=== PATIENT | female | born 1975 | race African-American/Black ===

== ENCOUNTER 2017-03-12 18:17 | Emergency (ER) | payer OTHER ==
[2017-03-12] MEDS ORDERED: methylPREDNISolone Sod Succ/PF 125 MG/2 ML VIAL ONE (18:51)
[2017-03-12] MEDS ORDERED: AMOXicillin 250 MG CAP ONE (18:51)
--- NOTE | 2017-03-12 20:34 | RAD ---
EXAM: CHEST TWO VIEWS 03/12/17 HISTORY: Dyspnea. Shortness of breath and cough. COMPARISON: 01/21/12. FINDINGS: Normal cardiac silhouette. The lungs and pleural spaces are clear. No pneumothorax or osseous abnorm alities. IMPRESSION: No acute cardiopulmonary process. POS: H
== END 2017-03-12 19:16 | disposition home or self-care (01) ==
LOC: BURERS 18:17
DX: J20.9 Acute bronchitis, unspecified (principal); N83.209 Unspecified ovarian cyst, unspecified side; Z79.899 Other long term (current) drug therapy
CPT/HCPCS: 71020; 94640; 96372; J2930; J7620

== ENCOUNTER 2017-07-06 20:00 | Emergency (ER) | payer OTHER | END 2017-07-06 20:35 | disposition home or self-care (01) | LOC: BURERS 20:00 | DX: J06.9 Acute upper respiratory infection, unspecified (principal); E28.2 Polycystic ovarian syndrome; Z87.01 Personal history of pneumonia (recurrent) | CPT/HCPCS: 99283 ==

== ENCOUNTER 2018-01-18 18:29 | Emergency (ER) | payer OTHER ==
[2018-01-18] MEDS ORDERED: Ketorolac Tromethamine 60 MG/2 ML VIAL ONE (18:50)
--- NOTE | 2018-01-18 20:30 | RAD ---
LEFT KNEE FOUR VIEWS: 01/18/18 No fracture, dislocation, or joint effusion was seen. Osteoarthritis was present consistent of medial joint space narrowing and osteophytes. The patellofemoral joint is involved as well. IMPRESSION: Osteoarthritis. POS: HOME
--- NOTE | 2018-01-18 20:31 | RAD ---
LEFT FOOT THREE VIEWS: 01/18/18 Hallux valgus is present with hammertoe deformities. No acute fracture or periosteal reaction was see n. old trauma at the base of the fifth metatarsal is noted. IMPRESSION: Chronic changes but no acute finding. POS: HOME
--- NOTE | 2018-01-18 20:48 | RAD ---
LEFT ANKLE THREE VIEWS: 01/18/18 An old healed fracture of the distal fibular shaft is noted. There are bony densities around the medi al malleolus indicating old injury. The ankle joint is narrowed. I see no findings of acute fracture, however. There probably was old trauma at the base of the fifth metatarsal as well. There is extensi ve soft tissue swelling in the lower leg. IMPRESSION: Extensive old traumatic changes but no acute bony findings. POS: HOME
== END 2018-01-18 20:00 | disposition home or self-care (01) ==
LOC: BURERS 18:29
DX: S93.402A Sprain of unspecified ligament of left ankle, initial encounter (principal); S83.92XA Sprain of unspecified site of left knee, initial encounter; I10 Essential (primary) hypertension; F32.9 Major depressive disorder, single episode, unspecified; W18.30XA Fall on same level, unspecified, initial encounter
CPT/HCPCS: 96372; J1885

== ENCOUNTER 2018-01-22 13:38 | Emergency (ER) | payer OTHER ==
[2018-01-22] MEDS ORDERED: methylPREDNISolone Sod Succ/PF 125 MG/2 ML VIAL ONE (14:56)
[2018-01-22] MEDS ORDERED: Ibuprofen 800 MG TAB ONE (14:56)
[2018-01-22] MEDS ORDERED: cefTRIAXone\\ROCEPHIN 1 GM VIAL ONE (15:05)
[2018-01-22] MEDS ORDERED: Sterile Water 0 ML ONE (15:06)
[2018-01-22 15:08] LABS: ALT (SGPT) 18 U/L (8-55); AST (SGOT) 35 U/L (5-34); Albumin 3.7 g/dL (3.5-5.0); Alkaline Phosphatase 61 U/L (40-150); Anion Gap 13 mmol/L (10-20); BUN (Urea Nitrogen) 7 mg/dL (7.0-18.7); Bilirubin, Total 0.5 mg/dL (0.2-1.2); Calc. Creatinine Clearance 0 mL/min (70-130); Calcium 8.9 mg/dL (7.8-10.44); Carbon Dioxide 25 mmol/L (22-29); Chloride 104 mmol/L (98-107); Estimated GFR-MDRD Greater than 90; Globulin 3.8 g/dL (2.4-3.5); Glucose 111 mg/dL (70-105); Potassium 3.5 mmol/L (3.5-5.1); Protein, Total 7.5 g/dL (6.0-8.3); Sodium 138 mmol/L (136-145)
[2018-01-22 15:09] LABS: Troponin I Less than 0.010 ng/mL (< 0.028)
[2018-01-22] MEDS ORDERED: Azithromycin 500 MG VIAL ONE (15:20)
[2018-01-22 15:21] LABS: #Basophils 0.2 thou/uL (0.0-0.2); #Eosinphils 0.2 thou/uL (0.0-0.7); #Lymphocytes 1.9 thou/uL (1.20-3.40); #Monocytes 1.1 thou/uL (0.11-0.59); #Neutrophils 5.2 thou/uL (1.40-6.50); %Basophils 1.8 % (0.0-1.0); %Eosinophils 2.3 % (0.0-10.0); %Lymphocytes 22.7 % (21.0-51.0); %Monocytes 12.6 % (0.0-10.0); %Neutrophils 60.6 % (42.0-75.0); Band 6 % (5-11); Eosinophils 2 % (0-10); Hemoglobin 11.5 g/dL (12.0-16.0); Hypochromia MODERATE=16-30 cells (100X) (0-5/hpf); Lymphocytes 26 % (21-51); MDiff Complete? YES; Mean Corpuscular HGB CONC 33.7 g/dL (32.0-36.0); Mean Corpuscular Hemoglobin 24.5 pg (27.0-31.0); Mean Corpuscular Volume 72.7 fl (81.0-99.0); Microcytosis SLIGHT = 6-15 cells (100X) (0-5/hpf); Monocytes 10 % (0-10); Neutrophil 56 % (42-75); Platelet Count 315 thou/uL (130-400); RBC Distribution Width 15.5 % (11.5-14.5); Red Blood Cell (RBC) Count 4.67 mill/uL (4.20-5.40); White Blood Cell (WBC) Count 8.5 thou/uL (4.8-10.8)
--- NOTE | 2018-01-22 15:44 | RAD ---
2 VIEWS CHEST: Date: 01/22/18 PROVIDED CLINICAL HISTORY: Dyspnea. FINDINGS: Comparison with 03/12/17. Cardiac and mediastinal silhouette is within normal limits. Evaluation is limited by patient body hab itus. No definite focal consolidation, pleural fluid, or pneumothorax. The lateral view is essentiall y nondiagnostic. IMPRESSION: No evidence for an acute cardiopulmonary process with limitations as above. POS: [facility]
== END 2018-01-22 15:54 | disposition short-term general hospital (02) ==
LOC: BURERS 13:38
DX: J18.2 Hypostatic pneumonia, unspecified organism (principal); J98.01 Acute bronchospasm; I10 Essential (primary) hypertension; F32.9 Major depressive disorder, single episode, unspecified; Z79.899 Other long term (current) drug therapy; Z79.01 Long term (current) use of anticoagulants
CPT/HCPCS: 71046; 80053; 82553; 83605; 84484; 85025; 87040; 87804; 93005; 94640; 94760; 96365; 96375; J0456; J0696; J2930; J7620

== ENCOUNTER 2018-07-12 23:49 | Emergency (ER) | payer BC, OTHER ==
[2018-07-13] MEDS ORDERED: methylPREDNISolone Sod Succ/PF 125 MG/2 ML VIAL ONE (00:08)
[2018-07-13 00:32] LABS: ALT (SGPT) 12 U/L (8-55); AST (SGOT) 17 U/L (5-34); Albumin 3.9 g/dL (3.5-5.0); Alkaline Phosphatase 71 U/L (40-150); Anion Gap 14 mmol/L (10-20); BUN (Urea Nitrogen) 13 mg/dL (7.0-18.7); Bilirubin, Total 0.3 mg/dL (0.2-1.2); Calc. Creatinine Clearance 0 mL/min (70-130); Calcium 9.2 mg/dL (7.8-10.44); Carbon Dioxide 24 mmol/L (22-29); Chloride 105 mmol/L (98-107); Estimated GFR-MDRD 88; Globulin 3.9 g/dL (2.4-3.5); Glucose 146 mg/dL (70-105); Potassium 3.9 mmol/L (3.5-5.1); Protein, Total 7.8 g/dL (6.0-8.3); Sodium 139 mmol/L (136-145)
[2018-07-13 00:36] LABS: #Basophils 0.2 thou/uL (0.0-0.2); #Eosinphils 0.3 thou/uL (0.0-0.7); #Lymphocytes 4.6 thou/uL (1.20-3.40); #Monocytes 0.9 thou/uL (0.11-0.59); #Neutrophils 8.3 thou/uL (1.40-6.50); %Basophils 1.6 % (0.0-1.0); %Eosinophils 1.9 % (0.0-10.0); %Monocytes 6.5 % (0.0-10.0); %Neutrophils 57.9 % (42.0-75.0); Hemoglobin 11.5 g/dL (12.0-16.0); Mean Corpuscular HGB CONC 32.8 g/dL (32.0-36.0); Mean Corpuscular Hemoglobin 23.3 pg (27.0-31.0); Mean Platelet Volume 7.1 fL (7.4-10.4); Platelet Count 442 thou/uL (130-400); RBC Distribution Width 16.2 % (11.5-14.5); Red Blood Cell (RBC) Count 4.94 mill/uL (4.20-5.40); White Blood Cell (WBC) Count 14.3 thou/uL (4.8-10.8)
[2018-07-13 00:37] LABS: Anisocytosis SLIGHT = 6-15 cells (100X) (0-5/hpf); Microcytosis SLIGHT = 6-15 cells (100X) (0-5/hpf)
[2018-07-13 00:38] LABS: PLT Morphology Comment Appears Increased
[2018-07-13 00:39] LABS: Polychromasia SLIGHT = 2-3 cells (100X) (0-2/hpf)
--- NOTE | 2018-07-13 07:34 | RAD ---
PORTABLE CHEST: DATE: . FINDINGS: An AP portable film at 2334 is compared with a 01/02/18 study. The heart is upper normal in size to mildly enlarged, but unchanged from before. There is no vascula r congestion, edema, or pleural effusion. No lobar infiltrate was seen. The trachea is midline. IMPRESSION: Stable exam showing no acute finding. POS: HOME
== END 2018-07-13 00:47 | disposition home or self-care (01) ==
LOC: BURERS 23:49
DX: J45.901 Unspecified asthma with (acute) exacerbation (principal); I10 Essential (primary) hypertension; Z79.899 Other long term (current) drug therapy; Z79.84 Long term (current) use of oral hypoglycemic drugs
CPT/HCPCS: 71045; 80053; 85025; 96374; J2930; J7620

== ENCOUNTER 2018-10-05 23:06 | Emergency (ER) | payer BC, OTHER ==
[2018-10-06] MEDS ORDERED: Ibuprofen 800 MG TAB ONE (00:10)
--- NOTE | 2018-10-06 08:59 | RAD ---
LEFT ANKLE THREE VIEWS: Date: 06-06-18 Comparison: 01-18-18 FINDINGS: An old well healed fracture of the distal fibular shaft is apparent as well as old traumatic changes around the medial malleolus. While there is marked soft tissue swelling of the area around the ankle, no focal acute traumatic change was seen. There is some narrowing of the ankle joint itself. No acut e fracture was identified. IMPRESSION: Prominent soft tissue swelling and old traumatic changes but no acute bony finding. POS: HOME
--- NOTE | 2018-10-06 09:01 | RAD ---
LEFT LEG: Date: 10-05-18 FINDINGS: AP and lateral views are provided. The tibia and fibula appear intact with no acute fracture seen. De generative changes are seen in the knee joint with medial joint space narrowing and osteophytes. No j oint effusion is seen there. IMPRESSION: Old traumatic changes distally and osteoarthritis at the knee. No acute findings. POS: HOME
== END 2018-10-06 00:23 | disposition home or self-care (01) ==
LOC: BURERS 23:06
DX: S80.12XA Contusion of left lower leg, initial encounter (principal); I10 Essential (primary) hypertension; J45.909 Unspecified asthma, uncomplicated; W17.89XA Other fall from one level to another, initial encounter

== ENCOUNTER 2019-02-10 22:27 | Emergency (ER) | payer BC ==
[2019-02-10] MEDS ORDERED: Cyclobenzaprine 10 MG TAB ONE (22:42)
[2019-02-10] MEDS ORDERED: Ketorolac Tromethamine 60 MG/2 ML VIAL ONE (22:42)
== END 2019-02-10 23:02 | disposition home or self-care (01) ==
LOC: BURERS 22:27
DX: S23.3XXA Sprain of ligaments of thoracic spine, initial encounter (principal); I10 Essential (primary) hypertension; J45.909 Unspecified asthma, uncomplicated; Z79.899 Other long term (current) drug therapy; X50.9XXA Other and unspecified overexertion or strenuous movements or postures, initial encounter
CPT/HCPCS: 96372; J1885

== ENCOUNTER 2019-07-04 19:34 | Emergency (ER) | payer BC ==
[~2019-07-04 19:34] MED LIST: Iopamidol 370 76% 100 ML VIAL ONE
[2019-07-04 19:59] LABS: Pregnancy Test - Urine (BHCG) Negative (Negative)
[2019-07-04 20:00] LABS: Bilirubin Negative (Negative); Blood, Urine Trace (Negative); Clarity Cloudy (Clear); Glucose, Urine (Dipstick) Negative (Negative); Leukocyte Negative (Negative); Nitrite Negative (Negative); Pregu Control Background? CLEAR/WHITE (CLR/WHITE); Pregu Control Bar Appear? YES (CONTROL BAR); Protein, Urine (Dipstick) 30 mg/dL (Neg-Trace); Specific Gravity 1.034 (1.002-1.036)
[2019-07-04] MEDS ORDERED: Morphine 4 MG/ML VIAL ONE (20:05)
[2019-07-04 20:08] LABS: Bacteria/HPF 2+ HPF (None Seen); RBC/HPF 0-3 HPF (0-3); WBC/HPF 0-3 HPF (0-3)
[2019-07-04 20:24] LABS: #Basophils 0.2 thou/uL (0.0-0.2); #Eosinphils 0.3 thou/uL (0.0-0.7); #Lymphocytes 4.1 thou/uL (1.20-3.40); #Neutrophils 6.7 thou/uL (1.40-6.50); %Basophils 1.6 % (0.0-1.0); %Eosinophils 2.6 % (0.0-10.0); %Lymphocytes 33.2 % (21.0-51.0); %Monocytes 8.3 % (0.0-10.0); %Neutrophils 54.3 % (42.0-75.0); Hemoglobin 11.5 g/dL (12.0-16.0); MDiff Complete? YES; Mean Corpuscular HGB CONC 31.9 g/dL (32.0-36.0); Mean Corpuscular Hemoglobin 23.6 pg (27.0-31.0); Mean Platelet Volume 6.1 fL (7.4-10.4); Microcytosis SLIGHT = 6-15 cells (100X) (0-5/hpf); Platelet Count 394 thou/uL (130-400); RBC Distribution Width 15.1 % (11.5-14.5); Red Blood Cell (RBC) Count 4.86 mill/uL (4.20-5.40); White Blood Cell (WBC) Count 12.3 thou/uL (4.8-10.8)
[2019-07-04 20:26] LABS: ALT (SGPT) 12 U/L (8-55); AST (SGOT) 18 U/L (5-34); Albumin 3.7 g/dL (3.5-5.0); Alkaline Phosphatase 67 U/L (40-150); Anion Gap 16 mmol/L (10-20); BUN (Urea Nitrogen) 14 mg/dL (7.0-18.7); Bilirubin, Total 0.3 mg/dL (0.2-1.2); Calc. Creatinine Clearance 0 mL/min (70-130); Calcium 8.9 mg/dL (7.8-10.44); Carbon Dioxide 24 mmol/L (22-29); Chloride 105 mmol/L (98-107); Estimated GFR-MDRD Greater than 90; Globulin 3.8 g/dL (2.4-3.5); Glucose 95 mg/dL (70-105); Lipase 77 U/L (8-78); Potassium 3.6 mmol/L (3.5-5.1); Protein, Total 7.5 g/dL (6.0-8.3); Sodium 141 mmol/L (136-145)
--- NOTE | 2019-07-04 21:30 | CT ---
CT ABDOMEN AND PELVIS WITH CONTRAST: 07/04/[address] of the abdomen and pelvis was performed and compared with a prior exam of 12/07/14. The patie nt presents today with right lower quadrant pain. The lung bases are clear. The liver is a bit generous in size but unchanged since the prior scan. A f ew hypolucencies within the central portion of the right lobe are cysts and were present before. The spleen and pancreas were unremarkable. There is a small 1.6 cm nodule in the left adrenal gland. Whi le its CT densities are a little higher than one often sees in an adenoma, it was present on the prio r scan and has not changed at all in size. No mass or hydronephrosis were seen in the kidneys. The ab dominal aorta shows no aneurysm. The mesenteric vessels all fill normally. The stomach is distended with food stuff. I do not know if there is a cause for delayed gastric empty ing. The bowel shows no inflammatory changes or dilation. I see no inflammatory changes in the right lower quadrant. No free air or free fluid was seen. CT of the pelvis shows no pelvic masses, fluid collections, or inflammatory changes. The adnexal otry ons are clear. There were no acute findings associated with the pelvic bony structures. There were a few mesenteric nodes in the right lower quadrant that were a bit prominent in size, agee nirmal, I found them on the 2014 scan and they have really not changed much. Thus I doubt their signific ance. IMPRESSION: Quite a bit of food stuff remaining in the patient's stomach which may or may not be significant. The re were no findings to explain right lower quadrant pain. POS: HOME
== END 2019-07-04 21:15 | disposition home or self-care (01) ==
LOC: BURERS 19:34
DX: R10.31 Right lower quadrant pain (principal); I10 Essential (primary) hypertension; J45.909 Unspecified asthma, uncomplicated; Z79.899 Other long term (current) drug therapy; Z79.891 Long term (current) use of opiate analgesic
CPT/HCPCS: 74177; 80053; 81003; 81015; 81025; 83605; 83690; 85025; 96374; J2270; Q9967

== ENCOUNTER 2019-09-08 09:47 | Emergency (ER) | payer BC ==
[2019-09-08] MEDS ORDERED: Ibuprofen 800 MG TAB ONE (11:08)
--- NOTE | 2019-09-08 11:12 | RAD ---
FOUR VIEWS LEFT KNEE: HISTORY: Pain. Injury. COMPARISON: 01/18/2018. FINDINGS: Stable moderate narrowing of the medial compartment. Mild to moderate narrowing of the lateral compar tment. Moderate narrowing of the patellofemoral compartment. Irregularity involving the inferior lateral patella. Correlate for point tenderness. No significant joint effusion. IMPRESSION: Tricompartmental degenerative change. Questionable fracture involving the inferior lateral patella. C orrelate clinically. Transcribed Date/Time: 09/08/2019 11:17 AM
== END 2019-09-08 11:33 | disposition home or self-care (01) ==
LOC: BURERS 09:47
DX: S83.92XA Sprain of unspecified site of left knee, initial encounter (principal); J06.9 Acute upper respiratory infection, unspecified; M17.12 Unilateral primary osteoarthritis, left knee; J45.909 Unspecified asthma, uncomplicated; I10 Essential (primary) hypertension; Z87.01 Personal history of pneumonia (recurrent); X50.1XXA Overexertion from prolonged static or awkward postures, initial encounter

== ENCOUNTER → 2020-01-03 | Emergency (ER) | payer BC ==
[~2020-01-03] MED LIST changes: +Dexamethasone 4 MG TAB ONE; -Iopamidol 370 76% 100 ML VIAL ONE; +Ketorolac Tromethamine 30 MG/ML VIAL ONE; +Metoclopramide HCl 10 MG/2 ML VIAL ONE; +diphenhydrAMINE 25 MG CAP ONE
== END ==
LOC: BURERS 21:08
DX: R51 Headache (principal); I10 Essential (primary) hypertension; J45.909 Unspecified asthma, uncomplicated
CPT/HCPCS: 96372; 99283; J1885; J2765; J8540; Q0163

== ENCOUNTER 2020-01-26 16:47 | Emergency (ER) | payer BC | END 2020-01-26 17:05 | disposition home or self-care (01) | LOC: BURERS 16:47 | DX: I88.9 Nonspecific lymphadenitis, unspecified (principal) | CPT/HCPCS: 99282 ==

== ENCOUNTER 2020-03-04 21:10 | Emergency (ER) | payer BC ==
[2020-03-04 21:51] LABS: Clarity Slightly Cloudy (Clear)
[2020-03-04] MEDS ORDERED: Ondansetron PF 4 MG/2 ML Vial ONE (22:12)
[2020-03-04] MEDS ORDERED: Morphine 4 MG/ML VIAL ONE (22:12)
[2020-03-04] MEDS ORDERED: Acetaminophen 500 MG TAB ONE (22:12)
[2020-03-04 22:17] LABS: Bacteria/HPF 1+ HPF (None Seen); Transitional Epithelial 0-3 HPF (None Seen)
[2020-03-04 22:30] LABS: ALT (SGPT) 18 U/L (8-55); AST (SGOT) 23 U/L (5-34); Albumin 3.9 g/dL (3.5-5.0); Alkaline Phosphatase 56 U/L (40-110); Anion Gap 13 mmol/L (10-20); BUN (Urea Nitrogen) 7 mg/dL (7.0-18.7); Bilirubin, Total 0.4 mg/dL (0.2-1.2); Calc. Creatinine Clearance 0 mL/min (70-130); Calcium 9.4 mg/dL (7.8-10.44); Carbon Dioxide 27 mmol/L (22-29); Chloride 101 mmol/L (98-107); Estimated GFR-MDRD Greater than 90; Globulin 4.2 g/dL (2.4-3.5); Glucose 103 mg/dL (70-105); Lipase 53 U/L (8-78); Potassium 3.1 mmol/L (3.5-5.1); Protein, Total 8.1 g/dL (6.0-8.3); Sodium 138 mmol/L (136-145)
[2020-03-04] MEDS ORDERED: Ketorolac Tromethamine 30 MG/ML VIAL ONE (22:40)
[2020-03-04] MEDS ORDERED: Potassium Chloride 20 MEQ TAB ONE (22:47)
[2020-03-04 22:48] LABS: Hemoglobin 12.8 g/dL (12.0-16.0); Mean Corpuscular HGB CONC 33.2 g/dL (32.0-36.0); Mean Corpuscular Hemoglobin 25.5 pg (27.0-31.0); Mean Corpuscular Volume 76.8 fL (78.0-98.0); Mean Platelet Volume 6.6 fL (7.4-10.4); Platelet Count 350 thou/uL (130-400); Red Blood Cell (RBC) Count 5.03 mill/uL (4.20-5.40); White Blood Cell (WBC) Count 13.5 thou/uL (4.8-10.8)
[2020-03-04 22:49] LABS: Band 3 % (5-11); Lymphocytes 26 % (21-51); Manual Diff?? YES; Microcytosis SLIGHT = 6-15 cells (100X) (0-5/hpf); Neutrophil 60 % (42-75); Platelet Morphology Comment Appears Adequate; Polychromasia SLIGHT = 2-3 cells (100X) (0-2/hpf)
[2020-03-04 22:50] LABS: MDiff Complete? YES; Monocytes 11 % (0-10)
[2020-03-04] MEDS ORDERED: cefTRIAXone\\ROCEPHIN 1 GM VIAL ONE (22:58)
== END 2020-03-04 23:20 | disposition home or self-care (01) ==
LOC: BURERS 21:10
DX: N12 Tubulo-interstitial nephritis, not specified as acute or chronic (principal); E87.6 Hypokalemia; Z79.899 Other long term (current) drug therapy; Z79.84 Long term (current) use of oral hypoglycemic drugs
CPT/HCPCS: 80053; 81003; 81015; 83605; 83690; 85025; 87086; 96361; 96374; 96375; J0696; J1885; J2270; J2405

== ENCOUNTER 2020-07-05 12:43 | Emergency (ER) | payer BC ==
[2020-07-05] MEDS ORDERED: diphenhydrAMINE 25 MG CAP ONE ×2 (13:01→13:14)
[2020-07-05] MEDS ORDERED: Famotidine 20 MG TAB ONE (13:01)
[2020-07-05] MEDS ORDERED: methylPREDNISolone Sod Succ/PF 125 MG/2 ML VIAL ONE (13:01)
== END 2020-07-05 13:20 | disposition home or self-care (01) ==
LOC: BURERS 12:43
DX: T63.441A Toxic effect of venom of bees, accidental (unintentional), initial encounter (principal); R22.1 Localized swelling, mass and lump, neck; D64.9 Anemia, unspecified
CPT/HCPCS: 96372; 99283; J2930; Q0163

== ENCOUNTER 2021-10-25 13:11 | Emergency (ER) | payer BC, SELFPAY ==
[2021-10-25] MEDS ORDERED: predniSONE 20 MG TAB ONE (13:28)
[2021-10-25] MEDS ORDERED: diphenhydrAMINE 25 MG CAP ONE (13:28)
== END 2021-10-25 13:52 | disposition home or self-care (01) ==
LOC: BURERS 13:11
DX: T63.441A Toxic effect of venom of bees, accidental (unintentional), initial encounter (principal); I10 Essential (primary) hypertension
CPT/HCPCS: 99282; J7512

== ENCOUNTER 2022-10-07 23:19 | Emergency (ER) | payer BC, SELFPAY ==
[2022-10-07] MEDS ORDERED: Oseltamivir 75 MG CAP ONE (23:44)
[2022-10-07] MEDS ORDERED: Benzonatate 100 MG CAP ONE (23:47)
== END 2022-10-07 23:50 | disposition home or self-care (01) ==
LOC: BURERS 23:19
DX: J11.1 Influenza due to unidentified influenza virus with other respiratory manifestations (principal); I10 Essential (primary) hypertension
CPT/HCPCS: 99283